=== PATIENT | male | born 1995 | race Hispanic/Latino ===

== ENCOUNTER 2020-09-01 22:17 | Emergency (ER) | payer SELFPAY ==
[~2020-09-01] VITALS: Ht 167.6 cm; Wt 77.1 kg
[2020-09-01] MEDS ORDERED: MECLIZINE HCL12.5 MG PO (22:42)
[2020-09-01] MEDS ORDERED: MECLIZINE HCL 12.5 MG TAB PO ONE (22:45)
== END 2020-09-02 01:38 | disposition home or self-care (01) ==
LOC: ER 22:36
DX: R42 Dizziness and giddiness (principal); F17.210 Nicotine dependence, cigarettes, uncomplicated
CPT/HCPCS: 93005; 99283; J8597